=== PATIENT | female | born 1995 | race Caucasian/White ===

== ENCOUNTER → 2020-04-03 | Outpatient (CLI) | payer OTHER | END | disposition home or self-care (01) | LOC: LAB SHORT 09:55 → PLD 09:55 | PROVIDERS: Advanced Practice Midwife | DX: Z01.419 Encounter for gynecological examination (general) (routine) without abnormal findings (principal) | CPT/HCPCS: G0123 ==

== ENCOUNTER 2025-03-09 07:59 | Emergency (ER) | payer OTHER ==
[~2025-03-09] VITALS: Ht 167.6 cm; Wt 49.9 kg
[2025-03-09 08:41] VITALS: BP 103/68
[2025-03-09] MEDS ORDERED: CEPH500 PO (11:18)
== END 2025-03-09 11:51 | disposition home or self-care (01) ==
LOC: ER 07:59
DX: S01.81XA Laceration without foreign body of other part of head, initial encounter (principal); S80.211A Abrasion, right knee, initial encounter; W19.XXXA Unspecified fall, initial encounter; Z88.0 Allergy status to penicillin; Z23 Encounter for immunization
CPT/HCPCS: 12013; 90471; 90715; 99282-25